=== PATIENT | female | born 1970 | race Caucasian/White ===

== ENCOUNTER 2016-09-30 11:44 | Emergency (ER) | payer OTHER ==
[~2016-09-30] VITALS: Ht 170.2 cm; Wt 116.5 kg
[~2016-09-30 11:44] MED LIST: CIPRO500 MG PO; FLOMAX0.4 MG PO; LOSARTAN POTAS100 MG PO; MOTRIN600 MG PO; PERCOCET 5/31 TABLET PO; ULTRAM50 MG PO; ZOFRAN ODT4 MG PO
[2016-09-30] MEDS ORDERED: FLEXERIL10 MG PO (13:53)
[2016-09-30] MEDS ORDERED: NAPROXEN500 MG PO (13:53)
[2016-09-30] MEDS ORDERED: LIDODERM 5% P1 PATCH TD (13:53)
[2016-09-30 14:12] VITALS: BP 152/88
== END 2016-09-30 14:20 | disposition home or self-care (01) ==
LOC: EME 11:44 → RME 11:44
DX: M54.5 Low back pain (principal); V43.52XA Car driver injured in collision with other type car in traffic accident, initial encounter; Y92.410 Unspecified street and highway as the place of occurrence of the external cause; F17.200 Nicotine dependence, unspecified, uncomplicated
CPT/HCPCS: 99281; 99283